=== PATIENT | male | born 1955 | race Caucasian/White ===

== ENCOUNTER 2017-03-16 20:55 | Emergency (ER) | payer MEDICARE, MEDICAID ==
[~2017-03-16] VITALS: Ht 172.7 cm; Wt 80.0 kg
--- NOTE | 2017-03-16 21:16 | PD ---
HPI . LAUREEN for suicide threat Chief Complaint: Psychiatric Symptoms Time Seen by Provider: 21:13 Travel History International Travel<30 days: No Contact w/Intl Traveler<30days: No Traveled to known affect area: No History of Present Illness HPI 62-year-old male with history of obstructive sleep apnea requiring C Pap machine , chronic pain and GERD here under Murrell act due to suicide threats. Apparently patient has been having some issues with a woman he has been dating for quite some time and recently she seemed to have wanted no contact with him and in an attempt to get her attention he decided to leave her note stating that she would never see him again and that she could have his car. Patient tells me that he was not implying suicide and instead looking for attention. He tells me he was giving her his car because he felt sorry that she had a car that was a piece of junk. He does admit to depression. He denies any suicidal or homicidal ideation. Apparently he went to [facility] and was told that they could not handle his care secondary C Pap machine and pain medication usage. At this present time patient denies any medical complaints. On examination he does have wheezing throughout all lung andrade and tells me that he has a history of COPD, for which he uses Xopenex and has not been using it lately. He denies any fever or chills. He denies coughing or chest pain. PFSH Past Medical History Sleep Apnea: Yes Social History Tobacco Use: Yes Allergies-Medications (Allergen,Severity, Reaction): Coded Allergies: Cyclobenzaprine (Verified Allergy, Unknown, 03/16/17) Reported Meds & Prescriptions Reported Meds & Active Scripts Active Reported [[place] Pill For R.a.] [White Pill For R.a.] Xopenex Neb (Levalbuterol HCl) 0.63 Mg/3 Ml Neb 0.63 Mg NEB QID Topamax (Topiramate) 50 Mg Tab 50 Mg PO BID Benicar Hct (Olmesartan-Hydrochlorothiazide) 40-25 mg Tab 1 Tab PO DAILY Antara (Fenofibrate Micronized) 30 Mg Cap 50 Mg PO DAILY Vicodin (Hydrocodone-Acetaminophen) 5-300 Mg Tab 0.5 Tab PO Q4H PRN Fentanyl Patch 72 HR (Fentanyl) 50 Mcg/Hr Patch 50 Mcg T-DERMAL Q72H Remove old patch when new one placed. Khedezla 24 HR (Desvenlafaxine Succinate) 100 Mg Tab 100 Mg PO DAILY Levothyroxine (Levothyroxine Sodium) 88 Mcg Tab 88 Mcg PO DAILY Gabapentin 600 Mg Tab 600 Mg PO QID Lorazepam 0.5 Mg Tab 1 Mg PO HS PRN Lorazepam 0.5 Mg Tab 0.5 Mg PO DAILY PRN Review of Systems General / Constitutional: No: Fever Eyes: No: Visual changes HENT: No: Headaches Cardiovascular: No: Chest Pain or Discomfort Respiratory: No: Shortness of Breath Gastrointestinal: No: Abdominal Pain Genitourinary: No: Dysuria Musculoskeletal: No: Pain Skin: No Rash Neurologic: No: Weakness Psychiatric: No: Depression Endocrine: No: Polydipsia Hematologic/Lymphatic: No: Easy Bruising Physical Exam Narrative GENERAL: AAO x 3, no acute distress, Well-nourished, well-developed patient. SKIN: Warm and dry. No visible rashes or bruising. HEAD: Normocephalic and atraumatic. EYES: No scleral icterus. No injection or drainage. EOM intact, PERRLA ENT: No nasal drainage noted. Mucous membranes pink. Airway patent. NECK: Supple, trachea midline. No JVD. CARDIOVASCULAR: Regular rate and rhythm without murmurs, gallops, or rubs. RESPIRATORY: Breath sounds equally diminished bilaterally. No accessory muscle use. No rhonchi or rales. Expiratory and inspiratory wheezing throughout all lung andrade GASTROINTESTINAL: Abdomen soft, non-tender, nondistended. EXTREMITIES: No cyanosis or edema. BACK: Nontender without obvious deformity. No CVA tenderness. NEURO: CN II-12 intact, matrix repairer strength normal b/l, UE and LE 5/5, no focal deficits PSYCH: AAO x 3, normal affect. Data Data Last Documented VS Vital Signs Date Time Temp Pulse Resp B/P Pulse Ox O2 Delivery O2 Flow Rate FiO2 03/16/17 21:52 98.6 86 16 153/88 98 Orders Complete Blood Count With Diff (03/16/17 21:23) Comprehensive Metabolic Panel (03/16/17 21:23) Psych Screen (03/16/17 21:23) Drug Screen, Random Urine (03/16/17 21:23) Chest, Single Ap (03/16/17 ) Albuterol-Ipratropium Neb (Duoneb Neb) (03/16/17 22:00) Diet Regular Basic (03/17/17 Breakfast) Labs Laboratory Tests Test 03/16/17 21:45 White Blood Count 13.3 TH/MM3 Red Blood Count 4.30 MIL/MM3 Hemoglobin 13.0 GM/DL Hematocrit 40.3 % Mean Corpuscular Volume 93.6 FL Mean Corpuscular Hemoglobin 30.2 PG Mean Corpuscular Hemoglobin 32.2 % Concent Red Cell Distribution Width 13.9 % Platelet Count 242 TH/MM3 Mean Platelet Volume 8.1 FL Neutrophils (%) (Auto) 56.2 % Lymphocytes (%) (Auto) 30.0 % Monocytes (%) (Auto) 7.2 % Eosinophils (%) (Auto) 5.7 % Basophils (%) (Auto) 0.9 % Neutrophils # (Auto) 7.5 TH/MM3 Lymphocytes # (Auto) 4.0 TH/MM3 Monocytes # (Auto) 1.0 TH/MM3 Eosinophils # (Auto) 0.8 TH/MM3 Basophils # (Auto) 0.1 TH/MM3 CBC Comment AUTO DIFF Differential Comment AUTO DIFF CONFIRMED Platelet Estimate NORMAL Platelet Morphology Comment NORMAL Sodium Level 134 MEQ/L Potassium Level 3.7 MEQ/L Chloride Level 98 MEQ/L Carbon Dioxide Level 30.8 MEQ/L Anion Gap 5 MEQ/L Blood Urea Nitrogen 15 MG/DL Creatinine 0.94 MG/DL Estimat Glomerular Filtration 81 ML/MIN Rate Random Glucose 92 MG/DL Calcium Level 8.9 MG/DL Total Bilirubin 0.3 MG/DL Aspartate Amino Transf 24 U/L (AST/SGOT) Alanine Aminotransferase 19 U/L (ALT/SGPT) Alkaline Phosphatase 69 U/L Total Protein 7.4 GM/DL Albumin 3.3 GM/DL Urine Opiates Screen POS Urine Barbiturates Screen NEG Urine Amphetamines Screen NEG Urine Benzodiazepines Screen NEG Urine Cocaine Screen NEG Urine Cannabinoids Screen NEG MDM Medical Decision Making Medical Screen Exam Complete: Yes Emergency Medical Condition: Yes Medical Record Reviewed: Yes Differential Diagnosis Suicidal ideation, depression, induced mood disorder, bipolar disorder, COPD, less likely COPD exacerbation Narrative Course 62-year-old male here under Murrell act secondary suicidal threats. He has wheezing throughout all lung andrade. He is not short of breath or any signs of respiratory distress. According to him, this seems to be his baseline. Labs and imaging have been ordered. Duoneb provided. Patient is awaiting bed placement. That provider will determine patient's disposition. 03/17/17 11:05 Patient now in psych and was awaiting medical clearance. Labs have been reviewed ; CXR with mild interstitial prominence bilaterally, discussed with my attending Dr. Alfaro, no meds indicated as this does not appear to be infectious in nature. Patient is medically cleared. Condition: Stable Georgina Arias Mar 16, 2017 21:15
[2017-03-16 21:52] VITALS: BP 153/88; PULSE 86; RESP 16; TEMP 98.6; O2SAT 98
[2017-03-16] MEDS ORDERED: RESP: ALBUTEROL 2.5 MG/IPRATROPIUM 0.5 MG NEB (SCH) NEB ONE (22:00)
[2017-03-16 22:10] LABS: AUTOMATED NEUTROPHIL # 7.5 TH/MM3 (1.8-7.7); BASOPHIL # 0.1 TH/MM3 (0-0.2); BASOPHIL % 0.9 % (0.0-2.0); EOSINOPHIL # 0.8 TH/MM3 (0-0.4); EOSINOPHIL % 5.7 % (0.0-4.0); HEMATOCRIT 40.3 % (39.0-51.0); MEAN CELL VOLUME 93.6 FL (80.0-100.0); MEAN CORPUSCULAR HEMOGLOBIN 30.2 PG (27.0-34.0); MEAN CORPUSCULAR HGB CONC 32.2 % (32.0-36.0); MONO % 7.2 % (0.0-8.0); NEUT % 56.2 % (16.0-70.0); PLATELET COUNT 242 TH/MM3 (150-450); RED CELL DISTRIBUTION WIDTH 13.9 % (11.6-17.2); WHITE BLOOD COUNT 13.3 TH/MM3 (4.0-11.0)
--- NOTE | 2017-03-16 22:11 | RADRPT ---
EXAM DATE/TIME: 03/16/2017 21:19 [facility] COMPARISON: No previous studies available for comparison. INDICATIONS : Patient became short of breath this evening. Patient is a smoker. MEDICAL HISTORY : Chronic obstructive pulmonary disease. SURGICAL HISTORY : None. ENCOUNTER: Initial ACUITY: 1 day PAIN SCORE: 0/10 LOCATION: Bilateral chest FINDINGS: A single frontal view of the chest demonstrates mild prominence of the interstitial markings of the u pper lungs bilaterally without focal infiltrate or consolidation. The lower lungs are clear. There is a horizontal linear opacity in the left costophrenic angle suggesting scarring or atelectasis. Th e heart is normal in size. Both hemidiaphragms are well delineated. CONCLUSION: Bilateral upper lobe interstitial prominence suggesting non-consolidative interstitial infiltrates. Zafar Rosario MD on March 16, 2017 at 22:07 Board Certified Radiologist. This report was verified electronically.
[2017-03-16 22:16] LABS: AMPHETAMINE, URINE NEG (NEG); BARBITURATES, URINE NEG (NEG); COCAINE, URINE NEG (NEG)
[2017-03-16 22:21] LABS: HEMO FLAGS AUTO DIFF
[2017-03-16 22:27] LABS: ALKALINE PHOSPHATASE 69 U/L (45-117); TOTAL BILIRUBIN ADULT 0.3 MG/DL (0.2-1.0)
[2017-03-16 22:33] LABS: ALT (GPT) 19 U/L (12-78); ANION GAP 5 MEQ/L (5-15); AST (GOT) 24 U/L (15-37); BICARBONATE 30.8 MEQ/L (21.0-32.0); BLOOD UREA NITROGEN 15 MG/DL (7-18); CHLORIDE 98 MEQ/L (98-107); GLOMERULAR FILTRATION RATE 81 ML/MIN (>89); POTASSIUM 3.7 MEQ/L (3.5-5.1); SODIUM (NA) 134 MEQ/L (136-145)
[2017-03-16 22:51] LABS: PLATELET ESTIMATE SMEAR NORMAL (NORMAL); PLATELET MORPHOLOGY NORMAL (NORMAL)
[2017-03-16 22:52] LABS: SCAN/DIFF AUTO DIFF CONFIRMED
[2017-03-17] MEDS ORDERED: LORA-373 PO ×2 (02:57)
[2017-03-17] MEDS ORDERED: LEVO88TA2 PO (02:57)
[2017-03-17] MEDS ORDERED: GABA600T PO (02:57)
[2017-03-17] MEDS ORDERED: DESV1TAB PO (02:57)
[2017-03-17] MEDS ORDERED: [UNRECOGNIZED DRUG - REMARK] (03:22)
[2017-03-17] MEDS ORDERED: TOPA50TA7 PO (03:22)
[2017-03-17] MEDS ORDERED: [UNRECOGNIZED DRUG - REMARK] (03:22)
[2017-03-17] MEDS ORDERED: HYDR-3111 PO (03:22)
[2017-03-17] MEDS ORDERED: FENO5CAP PO (03:22)
[2017-03-17] MEDS ORDERED: FENT50DI T-DERMAL (03:22)
[2017-03-17] MEDS ORDERED: BENI40TA7 PO (03:22)
[2017-03-17] MEDS ORDERED: LEVA.63I NEB (03:22)
--- NOTE | 2017-03-17 13:07 | PD ---
History of Present Illness Chief Complaint: Psychiatric Symptoms Time Seen by Provider: 13:00 Travel History International Travel<30 Days: No Contact w/Intl Traveler<30days: No Known affected area: No Legal Status Legal Status: Murrell Act Murrell Act Signed By: Tico Hong History of Present Illness: History of Present Illness HPI 62-year-old male with history of depression, anxiety and PTSD who is under a Murrell act initiated by [facility] due to suicide threats. The BA alleges that he wrote a letter advising he had no reason to live anymore and signed the title of his vehicle to his friend. also admitted he had been depressed. ED note is reviewed and included in this report: " Apparently patient has been having some issues with a woman he has been dating for quite some time and recently she seemed to have wanted no contact with him and in an attempt to get her attention he decided to leave her note stating that she would never see him again and that she could have his car. Patient tells me that he was not implying suicide and instead looking for attention. He tells me he was giving her his car because he felt sorry that she had a car that was a piece of junk. He does admit to depression. He denies any suicidal or homicidal ideation". EMR is reviewed. No previous contact with [facility] psychiatry dept. Patient was monitored in J pod and he presented no behavioral concerns and no suicidality. He is calm and cooperative. He states that he has been trying to reestablish communication with an ex girlfriend as he wanted to give the relationship another try.When she did not answer his alls he decided to send her a note . He acknowledges that the not may have implied that he wanted to hurt himself but that he had no intention o f doing so and that he was looking for a reaction. he intended on giving her his car because she felt sorry for her. The patient continues to deny any intent of harming himself and denies feeling depressed. He is currently in treatment and receives counseling as well. In terms of suicidality he states " I have no reason to hurt myself. I have 3 daughters and grandchildren. ". PFSH Past Medical History Asthma: Yes Depression: Yes COPD: Yes Diminished Hearing: No Sleep Apnea: Yes Tetanus Vaccination: Unknown Influenza Vaccination: No Psychiatric History Psychiatric History Hx Psychiatric Treatment: HX: DEPRESSION, ANXIETY, AND PTSD. No hx of sucide attempts. History of Inpatient Treatment: No Guns or firearms in home: No Social History male. Lives by himself. Hx Alcohol Use: No Hx Tobacco Use: Yes Hx Substance Use: No Hx of Substance Use Treatment: No Allergies-Medications (Allergen,Severity, Reaction): Coded Allergies: Cyclobenzaprine (Verified Allergy, Unknown, 03/16/17) Reported Meds & Prescriptions Reported Meds & Active Scripts Active Reported [[place] Pill For R.a.] [White Pill For R.a.] Xopenex Neb (Levalbuterol HCl) 0.63 Mg/3 Ml Neb 0.63 Mg NEB QID Topamax (Topiramate) 50 Mg Tab 50 Mg PO BID Benicar Hct (Olmesartan-Hydrochlorothiazide) 40-25 mg Tab 1 Tab PO DAILY Antara (Fenofibrate Micronized) 30 Mg Cap 50 Mg PO DAILY Vicodin (Hydrocodone-Acetaminophen) 5-300 Mg Tab 0.5 Tab PO Q4H PRN Fentanyl Patch 72 HR (Fentanyl) 50 Mcg/Hr Patch 50 Mcg T-DERMAL Q72H Remove old patch when new one placed. Khedezla 24 HR (Desvenlafaxine Succinate) 100 Mg Tab 100 Mg PO DAILY Levothyroxine (Levothyroxine Sodium) 88 Mcg Tab 88 Mcg PO DAILY Gabapentin 600 Mg Tab 600 Mg PO QID Lorazepam 0.5 Mg Tab 1 Mg PO HS PRN Lorazepam 0.5 Mg Tab 0.5 Mg PO DAILY PRN Review of Systems Except as stated in HPI: all other systems reviewed are Neg Exam Alert: Yes [place]: Person (ox4) Mood: Calm Affect: Appropriate Speech: Clear, Logical Eye Contact: Normal Memory Intact: Comment (no impairment ) Hallucinations: Other (Negative) Delusions: No Suicidal: Ideation (deneis any) Homicidal: Ideation (Deneis any) Insight/Judgement Fair. Not impaired. MDM Medical Decision Making Medical Record Reviewed: Yes Assessment/Plan 62 year old male under a BA. he has a hx of depression, PTSD and anxiety. He was involved in a relationship which ended. He attempted to contact her and when she did not answer she sent her a message implying he was not going to be around. He made no attempt at harming himself.At this time the patient does not meet BA criteria. He has presented no indication of suicidality or of mood lability. there is no ailyn and no psychosis. The BA will be lifted. He is instructed to follow up with his outpatient provider. Orders Complete Blood Count With Diff (03/16/17 21:23) Comprehensive Metabolic Panel (03/16/17 21:23) Psych Screen (03/16/17 21:23) Drug Screen, Random Urine (03/16/17 21:23) Chest, Single Ap (03/16/17 ) Albuterol-Ipratropium Neb (Duoneb Neb) (03/16/17 22:00) Diet Regular Basic (03/17/17 Breakfast) Diet Regular Basic (03/17/17 Lunch) Results Vital Signs Date Time Temp Pulse Resp B/P Pulse Ox O2 Delivery O2 Flow Rate FiO2 03/16/17 21:52 98.6 86 16 153/88 98 Laboratory Tests Test 03/16/17 21:45 White Blood Count 13.3 Red Blood Count 4.30 Hemoglobin 13.0 Hematocrit 40.3 Mean Corpuscular Volume 93.6 Mean Corpuscular Hemoglobin 30.2 Mean Corpuscular Hemoglobin 32.2 Concent Red Cell Distribution Width 13.9 Platelet Count 242 Mean Platelet Volume 8.1 Neutrophils (%) (Auto) 56.2 Lymphocytes (%) (Auto) 30.0 Monocytes (%) (Auto) 7.2 Eosinophils (%) (Auto) 5.7 Basophils (%) (Auto) 0.9 Neutrophils # (Auto) 7.5 Lymphocytes # (Auto) 4.0 Monocytes # (Auto) 1.0 Eosinophils # (Auto) 0.8 Basophils # (Auto) 0.1 CBC Comment AUTO DIFF Differential Comment AUTO DIFF CONFIRMED Platelet Estimate NORMAL Platelet Morphology Comment NORMAL Sodium Level 134 Potassium Level 3.7 Chloride Level 98 Carbon Dioxide Level 30.8 Anion Gap 5 Blood Urea Nitrogen 15 Creatinine 0.94 Estimat Glomerular Filtration 81 Rate Random Glucose 92 Calcium Level 8.9 Total Bilirubin 0.3 Aspartate Amino Transf 24 (AST/SGOT) Alanine Aminotransferase 19 (ALT/SGPT) Alkaline Phosphatase 69 Total Protein 7.4 Albumin 3.3 Urine Opiates Screen POS Urine Barbiturates Screen NEG Urine Amphetamines Screen NEG Urine Benzodiazepines Screen NEG Urine Cocaine Screen NEG Urine Cannabinoids Screen NEG Diagnosis Primary Impression: PTSD (post-traumatic stress disorder) Additional Impression: Major depressive disorder Psychiatrically Cleared: Yes Referrals: [facility] (Out patient) call for appointment Departure Forms: Tests/Procedures Patient Instructions: General Instructions, Stress (ED) Med/ Other Pt Specific Info: No Change to Meds Disposition: 01 DISCHARGE HOME Condition: Stable Problem Qualifiers Additional Impression: Major depressive disorder Qualified Code: F33.0 - Mild episode of recurrent major depressive disorder Mónica Dee [facility] Mar 17, 2017 13:06
== END 2017-03-17 13:28 | disposition home or self-care (01) ==
LOC: NEPB 20:55 → NEPJ 03-17 13:28
DX: F43.10 Post-traumatic stress disorder, unspecified (principal); F33.9 Major depressive disorder, recurrent, unspecified; Z87.891 Personal history of nicotine dependence; J44.9 Chronic obstructive pulmonary disease, unspecified
CPT/HCPCS: 71010; 80053; 80307; 85025; 94664; 99284